=== PATIENT | male | born 1975 | race African-American/Black ===

== ENCOUNTER 2019-05-17 14:42 | Emergency (ER) | payer MEDICAID, SELFPAY ==
[2019-05-17 14:44] VITALS: BP 152/110; PULSE 105; RESP 16; TEMP 36.6; O2SAT 97; BMI 37.5
[2019-05-17 15:20] VITALS: BP 149/104; BP 161/102; BP 166/109; PULSE 102; PULSE 112; PULSE 99
[2019-05-17] MEDS: Ondansetron 4 MG/2 ML Vial IV (15:36)
[2019-05-17] MEDS: Meclizine HCl 25 MG Tablet PO (15:36)
--- NOTE | 2019-05-17 15:36 | ED.VISSUMM ---
- ER Visit Summary Date of Service: 05/17/19 Chief Complaint: Dizzy History of Present Illness: The patient is a 43 M with history of hypertension and vertigo. Patient states he got dizzy last evening and symptoms seem to worsen today. He describes it more as a vertigo sensation as opposed to lightheadedness. He denies palpitations. He states symptoms started after he got up out of bed. He has had mild nausea and vomiting secondary to his dizziness. He denies headache or vision change. Physical Examination: Blood pressure is 152/110, otherwise vitals normal. Patient sitting upright in bed no acute distress. Patient is in no acute distress and is nontoxic appearing. Head and neck examination is normal. Heart is regular rate and rhythm. Palpable pulses are noted throughout. Lungs are clear with good air movement throughout. Abdomen is soft and nontender. Bowel sounds are noted. Extremity examination is unremarkable with full range of motion. Neurologic examination reveals no focal deficits. Test Results: [] Emergency Department Course and Treatment: Patient is given a liter IV fluids, Zofran, and p.o. Antivert. Half hour later on repeat exam his symptoms are improved. He is able to lie his head back completely with no sensation of spinning. He will begin a prescription for Antivert at home as needed. Treatment Plan: [] Disposition: Discharge Impression: Vertigo, improved This note was generated with [employer] dictation software. It may contain incorrect words, spelling, and punctuation that were not noted in review of the chart prior to signing ED Disposition - Plan for ED Patient: Disposition: Home or Assisted Living Instructions: Benign Positional Vertigo Prescriptions: Meclizine HCl [Antivert] 25 mg PO 4X/DAY PRN PRN #20 tablet PRN Reason: Dizziness Referrals: Elizabeth Scott MD [STAFF PHYSICIAN] - As Needed
[2019-05-17] MEDS: 0.9% Normal Saline 1,000 ML 1000 ML IV (15:37)
[2019-05-17 16:18] VITALS: BP 169/116; PULSE 99; RESP 19; O2SAT 96
== END 2019-05-17 16:19 | disposition home or self-care (01) ==
PROVIDERS: Emergency Provider Emergency Medicine
DX: R42 Dizziness and giddiness (principal); I10 Essential (primary) hypertension; Z72.0 Tobacco use
CPT/HCPCS: 96361; 96374; 99283; J2405

== ENCOUNTER 2020-01-07 14:50 | Observation (INO) | payer OTHER, SELFPAY ==
[2020-01-07] VITALS (12 sets, daily range): BP systolic 133–154; BP diastolic 85–116; PULSE 94–104; RESP 16–18; TEMP 36.6–36.9; O2SAT 95–100; BMI 37.1
--- NOTE | 2020-01-07 15:18 | EKG12_ITS ---
Test Reason : AM EKG Blood Pressure : / mmHG Vent. Rate : 078 BPM Atrial Rate : 078 BPM P-R Int : 142 ms QRS Dur : 100 ms QT Int : 398 ms P-R-T Axes : 050 005 056 degrees QTc Int : 453 ms Normal sinus rhythm with sinus arrhythmia Nonspecific T wave abnormality Abnormal ECG When compared with ECG of 07-JAN-2020 16:50, MANUAL COMPARISON REQUIRED, DATA IS UNCONFIRMED Confirmed by YAW SANDERS ([id number]), associate editor COCO RAZA ([id number]) on 01/09/2020 9:55:33 AM Referred By: JEREL Confirmed By:YAW SANDERS
--- NOTE | 2020-01-07 15:20 | RAD_ITS ---
STUDY: X-RAY CHEST REASON FOR EXAM: Male, 44 years old. Chest pain TECHNIQUE: Single AP portable view of the chest. COMPARISON: None. FINDINGS: EKG lead projects are seen. The lungs are clear and expanded. There is no demonstrated pleural abnormality. There is mild cardiac enlargement. Normal mediastinum and fatou. Normal visualized pulmonary arteries. Normal visualized aortic arch and descending thoracic aorta. Normal visualized thoracic spine. Normal visualized ribs, clavicles, and shoulders. There is no demonstrated abnormality of the visualized soft tissue structures of the upper abdomen. RAD/Chest 1 View (Portable) IMPRESSION: Mild cardiomegaly. Electronically Signed: Gabo Gupta, at 15:42 EST , Service support ,
--- NOTE | 2020-01-07 15:22 | ED.DCSUM_ITS ---
- ER Visit Summary Date of Service: 01/07/20 Chief Complaint: [Chest pain] History of Present Illness: The patient is a 44 M [presents the emergency department chest discomfort that started this morning when he woke up in the morning. Patient describes a pressure heaviness to the left chest. Patient describes the pain radiating to his left shoulder and down his left arm at times. Patient states the discomfort is been continuous since this morning. He is never had discomfort like this before. He denies recent travel or surgery. Patient did feel somewhat short of breath with it and had some mild nausea. Patient believes his father had a heart attack but is unsure at what age. Patient has been under increased stress of late. Patient does have history of hypertension but not currently medicated. Patient denies any recent illness. Patient is never had a stress test or heart catheterization. Patient currently rates his pain a 6 out of 10.] Physical Examination: [HEENT-PERRLA, EOMI. Cranial nerves II through XII grossly intact. TMs clear. Mucous membranes moist. No adenopathy. Cardiovascular-regular rate and rhythm without murmur or ectopy Lungs-clear to auscultation, chest wall stable without crepitus or subcu emphysema Abdomen-normoactive bowel sounds, soft, nontender, no rebound or rigidity, no peritoneal signs. Extremities-intact ?4, normal range of motion, normal pulses, atraumatic] Test Results: [EKG obtained on arrival showed a sinus rhythm with a ventricular rate of 102 bpm with LVH noted and nonspecific ST changes.] CBC with differential obtained was unremarkable. Chemistries unremarkable. Troponin was 0.037. D-dimer was less than 0.27. Chest x-ray showed nothing acute. Emergency Department Course and Treatment: [Patient received aspirin on arrival the emergency department. Patient was given sublingual nitroglycerin x2 tablets and his pain resolved. Patient had an inch of Nitropaste placed to the anterior chest wall. On arrival patient was placed on a satellite project site monitor.] Treatment Plan: [Admit for further work-up and evaluation of chest pain] Disposition: [Admit] Impression: [Chest pain-rule out acute coronary syndrome] This note was generated with [employer] dictation software. It may contain incorrect words, spelling, and punctuation that were not noted in review of the chart prior to signing ED Disposition - Plan for ED Patient: Referrals: Care Physician,No Primary [Primary Care Provider] -
[2020-01-07] MEDS: Aspirin 81 MG TAB.CHEW 324 MG PO (15:27)
[2020-01-07] MEDS: 0.9% Normal Saline 1,000 ML 150 ML IV (15:27)
[2020-01-07] MEDS: Nitroglycerin SL (ED/IMG/CATH) 0.4 MG TABLET SUBLINGUAL ×2 (15:28→15:35)
[2020-01-07 15:33] LABS: Basophil# 0.01 X10^3/uL; Basophil% 0.2 % (0-1); Eosinophil# 0.02 X10^3/uL; Eosinophils% 0.4 % (0-5); Hematocrit 47.1 % (40-54); Hemoglobin 15.9 g/dL (13.0-16.5); Lymphocyte % 37.4 % (19-41); Mean Corp Hgb Conc 33.8 g/dL (32-36); Mean Corpuscular Hgb 29.3 pg (27.0-32.0); Mean Corpuscular Volume 86.7 fL (80-94); Mean Platelet Vol. 11.9 fl (6.2-12.0); Monocyte# 0.46 X10^3/uL; Monocyte% 8.2 % (0-10); NRBC Flagged by Analyzer 0 % (0-5); Neutrophil # 3.01 X10^3/uL (2.7-7.7); Neutrophil % 53.4 % (47-70); Platelet Count 177 K/mm3 (150-450); RBC Distribution Width CV 13.2 % (11.6-14.6); RBC Distribution Width SD 42.3 fl (35.1-43.9); Red Blood Count 5.43 M/mm3 (4.6-6.2); White Blood Count 5.6 K/mm3 (4.4-11.0)
[2020-01-07 15:47] LABS: D-Dimer Quantitative (DVT/PE) < 0.27 FEU/ug/m (0.27-0.49)
[2020-01-07 15:50] LABS: Anion Gap 6 (5-15); BUN 14 mg/dL (7-18); BUN/Creat Ratio 13.5 RATIO (10-20); Calcium,Total 8.5 mg/dL (8.5-10.1); Chloride 108 mmol/L (98-107); Creatinine, Serum 1.04 mg/dL (0.70-1.30); EST Glomerular Filtration Rate 83 mL/min (>60); Est Glom Filt Rate - Afr Amer 100 mL/min (>60); Estimated Creatinine Clearance 82.65 ml/min; Glucose 105 mg/dL (74-106); Potassium 3.8 mmol/L (3.5-5.1); Sodium Level 142 mmol/L (136-145)
[2020-01-07] MEDS: Acetaminophen 325 MG Tablet 650 MG PO (16:06)
[2020-01-07] MEDS: Nitroglycerin Oint 1 INCH PACKET TRANSDERM. (16:06)
--- NOTE | 2020-01-07 16:10 | PCM.HP.STD ---
<Kathi Dumont - Last Filed: 01/07/20 16:24> Problem List (1) HTN (hypertension) Status: Chronic History of Present Illness Date of Admission: 01/07/20 Chief Complaint: Chest pressure. The patient is a 44 year old M who presents emergency room due to chest pressure. Patient reports this began upon awakening this morning and has been intermittent during the day. Patient denies any aggravating or alleviating factors. He describes a chest tightness and pressure sensation feeling like his heart is being squeezed. He denies associated shortness of breath, lightheadedness, diaphoresis, palpitations. He does report some pain radiation to his left shoulder blade area. He reports a history of high blood pressure however he has not been on medication to treat this. He reports his father had heart attack, he does not know what age. He is also 1/2 pack/day smoker. No other risk factors of early onset heart disease. Patient reports he is fairly active with his job and has never had these symptoms prior. Past Medical History Past Medical History (Chronic Problems): Chronic Problems HTN (hypertension) (Chronic) Allergies No Known Allergies Allergy (Verified 01/07/20 14:51) Home Medications: Ambulatory Orders Medication Instructions Recorded NK 01/07/20 Surgical History: no surgical history Psychiatric History: No pertinent psych hx Lives: Alone Smoking Status: Current every day smoker Tobacco Use: Cigarettes - Half pack per day Alcohol: Heavy - 12 pack on the weekends Drugs: None - *Family History Maternal History Items: - - Lymphoma Paternal History Items: Heart Disease Review of Systems Constitutional: Denies: Chills, Fever, Weight Change HEENT: Denies: Head Aches, Sinus Congestion, Sinus Drainage Cardiovascular: Reports: Chest Pressure, Chest Tightness. Denies: Light Headedness, Palpitations, Syncope Respiratory: Denies: Cough, Shortness of breath at rest, Sputum production Gastrointestinal: Denies: Abdominal Pain, Nausea, Vomiting Genitourinary: Denies: Dysuria Musculoskeletal: Denies: Joint Pain, Joint Tenderness Skin: Denies: Rash, Wounds Neurological: Denies: Numbness, Tingling, Focal weakness Psychiatric: Denies: Anxiety, Depression, Homicidal Ideations, Suicidal Ideations Hematologic/ Lymphatic: Denies: Easy Bruising, Easy Bleeding VTE Information - Inpt Only VTE Present on Admission: No VTE Mechan Device Prophylaxis: None VTE Pharm Prophylaxis ordered?: No Reason prophylaxis not ordered:: Treatment Not Indicated - Physical Exam Vitals/I&O's: Vital Signs Temp Pulse Resp BP Pulse Ox 98 F 98 17 140/103 H 98 01/07/20 14:51 01/07/20 16:06 01/07/20 15:59 01/07/20 16:06 01/07/20 15:59 Oxygen Flow Rate (L/min) 2 Oxygen Delivery Method Nasal Cannula Weight: 230 lb Body Mass Index (BMI) 37.1 General: Alert, Oriented x3, Cooperative HEENT: Atraumatic, PERRLA, EOMI, Normocephalic Neck: Supple, No JVD, Negative Carotid Bruits Lungs: Clear to auscultation, Normal air movement Cardiovascular: Regular rate, Regular Rhythm, Normal S1, Normal S2, No murmurs Abdomen: Bowel Sounds Present, Soft, Non Tender, Non-Distended Extremities: No clubbing, No cyanosis, No edema, Capillary Refill Less than 3 Seconds Skin: No rashes, No breakdown Musculoskeletal: No Tenderness to Palpation of Joints or Extremities Neurological: Cranial nerves II-XII grossly intact, Neuro grossly intact Psych/Mental Status: Normal Affect, Appropriate Laboratory Results 01/07/20 15:03: WBC 5.6, RBC 5.43, Hgb 15.9, Hct 47.1, MCV 86.7, MCH 29.3, MCHC 33.8, RDW Std Deviation 42.3, RDW Coeff of Kaci 13.2, Plt Count 177, MPV 11.9, Immature Gran % (Auto) 0.400, Neut % (Auto) 53.4, Lymph % (Auto) 37.4, [place] % (Auto) 8.2, Eos % (Auto) 0.4, Baso % (Auto) 0.2, Absolute Neuts (auto) 3.0, Absolute Lymphs (auto) 2.10, Nucleated RBC % 0 01/07/20 15:03: D-Dimer Quant (PE/DVT) < 0.27 L 01/07/20 15:03: Sodium 142, Potassium 3.8, Chloride 108 H, Carbon Dioxide 28.0, Anion Gap 6, BUN 14, Creatinine 1.04, Estim Creat Clear Calc 82.65, Est GFR (MDRD) Af Amer 100, Est GFR (MDRD) Non-Af 83, BUN/Creatinine Ratio 13.5, Glucose 105, Calcium 8.5, Troponin I 0.037 Current Medications Sodium Chloride () 1,000 mls @ 150 mls/hr IV .Q6H40M [facility] Last Admin: 01/07/20 15:27 Dose: 150 mls/hr Documented by: Nitroglycerin (Nitrostat) 0.4 mg SUBLINGUAL Q5M PRN PRN Reason: Chest pain Last Admin: 01/07/20 15:35 Dose: 0.4 mg Documented by: Assessment/Plan 1. Chest pain, rule out ACS- initial troponin negative. EKG showed nonspecific ST changes. Chest x-ray unremarkable. Trend enzymes. Plan for stress test in a.m. Lipid profile in a.m. Suspect symptoms may be due to untreated hypertension. Patient's diastolic BP especially high on admission. Initiated on amlodipine 5 mg daily. 2. Untreated hypertension-patient has been told he has had high blood pressure in the past, not on medication regimen. Will begin amlodipine 5mg daily and titrate pending further BP monitoring. 3. Tobacco dependence-encouraged cessation. Nicotine replacement patch if desired. DVT prophylaxis-not indicated, low risk This patient was seen by LUCA Guevara under the supervision of Dr. Geiger. <Leonardo Geiger F - Last Filed: 01/07/20 18:37> History of Present Illness The patient is a 44 year old M [] Past Medical History Allergies No Known Allergies Allergy (Verified 01/07/20 14:51) - Physical Exam Vitals/I&O's: Vital Signs Temp Pulse Resp BP Pulse Ox 98.5 F 95 16 147/98 H 100 01/07/20 16:50 01/07/20 16:56 01/07/20 16:50 01/07/20 16:50 01/07/20 16:50 Oxygen Flow Rate (L/min) 2 Oxygen Delivery Method Room Air Weight: 230 lb Body Mass Index (BMI) 37.1 Intake and Output for Last 24 Hours 01/05/20 01/06/20 01/07/20 23:59 23:59 23:59 Intake Total 490 / 490 Balance 490 / 490 Laboratory Results 01/07/20 15:03: WBC 5.6, RBC 5.43, Hgb 15.9, Hct 47.1, MCV 86.7, MCH 29.3, MCHC 33.8, RDW Std Deviation 42.3, RDW Coeff of Kaci 13.2, Plt Count 177, MPV 11.9, Immature Gran % (Auto) 0.400, Neut % (Auto) 53.4, Lymph % (Auto) 37.4, [place] % (Auto) 8.2, Eos % (Auto) 0.4, Baso % (Auto) 0.2, Absolute Neuts (auto) 3.0, Absolute Lymphs (auto) 2.10, Nucleated RBC % 0 01/07/20 15:03: D-Dimer Quant (PE/DVT) < 0.27 L 01/07/20 15:03: Sodium 142, Potassium 3.8, Chloride 108 H, Carbon Dioxide 28.0, Anion Gap 6, BUN 14, Creatinine 1.04, Estim Creat Clear Calc 82.65, Est GFR (MDRD) Af Amer 100, Est GFR (MDRD) Non-Af 83, BUN/Creatinine Ratio 13.5, Glucose 105, Calcium 8.5, Troponin I 0.037 01/07/20 18:20: Troponin I Pending Current Medications Acetaminophen (Tylenol) 650 mg PO Q6H PRN PRN PRN Reason: Pain Score 1-10/Temp > 100.7 F Amlodipine Besylate (Norvasc) 5 mg PO DAILY [facility] Last Admin: 01/07/20 17:22 Dose: 5 mg Documented by: Nitroglycerin (Nitrostat) 0.4 mg SUBLINGUAL Q5M PRN PRN Reason: CARDIAC/CHEST PAIN Sodium Chloride () 10 - 40 ml IV UD PRN PRN Reason: SALINE FLUSH Code Visit Addendum: Dr. Geiger I personally examined the patient and reviewed the chart. I agree with the above. 44-year-old male who presents to the hospital with chest pain. His chest pain was atypical and not exacerbated by activity and not also significantly relieved by rest. He does have some relief now after the nitroglycerin. He has a family history of a heart attack in his father and he is also a smoker as well as obese. We will trend troponins and plan for an exercise nuclear stress test in the morning. Also will start him on Norvasc for his untreated high blood pressure. We did discuss cessation of tobacco products as this can decrease his risk of a heart attack by 50%. OBSV E&M: 42804 Initial observation care L2
--- NOTE | 2020-01-07 17:08 | EKG12_ITS ---
Test Reason : CP ADMISSION Blood Pressure : / mmHG Vent. Rate : 096 BPM Atrial Rate : 096 BPM P-R Int : 144 ms QRS Dur : 098 ms QT Int : 364 ms P-R-T Axes : 058 -02 066 degrees QTc Int : 459 ms Normal sinus rhythm Voltage criteria for left ventricular hypertrophy Nonspecific T wave abnormality Abnormal ECG When compared with ECG of 07-JAN-2020 15:00, MANUAL COMPARISON REQUIRED, DATA IS UNCONFIRMED Confirmed by YAW SANDERS ([id number]), electronic news gathering editor COCO RAZA ([id number]) on 01/09/2020 9:54:09 AM Referred By: JEREL Confirmed By:YAW SANDERS
[2020-01-07] MEDS: amLODIPine 5 MG Tablet PO (17:22)
[2020-01-08] VITALS (17 sets, daily range): BP systolic 112–148; BP diastolic 74–108; PULSE 74–115; RESP 14–18; TEMP 36.4–37; O2SAT 95–98
--- NOTE | 2020-01-08 05:55 | EKG12_ITS ---
Test Reason : Blood Pressure : / mmHG Vent. Rate : 102 BPM Atrial Rate : 102 BPM P-R Int : 142 ms QRS Dur : 098 ms QT Int : 354 ms P-R-T Axes : 051 -11 070 degrees QTc Int : 461 ms Sinus tachycardia Moderate voltage criteria for LVH, may be normal variant Nonspecific T wave abnormality Abnormal ECG Confirmed by YAW SANDERS ([id number]), visual effects editor COCO RAZA ([id number]) on 01/09/2020 9:30:04 AM Referred By: VERONICA Confirmed By:YAW SANDERS
[2020-01-08] MEDS: 0.9% Saline Lock 10 ML Syringe IV (06:16)
[2020-01-08 07:18] LABS: Cholesterol 115 mg/dL (200); High Density Lipoprotein 79 mg/dL; Triglycerides 108 mg/dL; Very Low Density Lipoprotein 22 mg/dL (5-40)
[2020-01-08] MEDS: Lisinopril 10 MG Tablet PO (09:56)
[2020-01-08] MEDS: amLODIPine 5 MG Tablet PO (09:56)
--- NOTE | 2020-01-08 10:19 | STRESSREP ---
Stress Test Report Date: 01-08-2020 Procedure: Pharmacologic stress nuclear imaging study Indications: Chest pain Consent: Per the patient Procedure: The patient underwent pharmacologic (Regadenoson) evaluation with a peak heart rate of 109 beats per minute (61 %predicted maximal heart rate) and a peak blood pressure of 158/110 mmHg. The baseline ECG demonstrated normal sinus rhythm. The peak pharmacologic ECG demonstrated no obvious ECG changes. There were no cardiac dysrhythmias pretest, during pharmacologic infusion, or recovery. There was no complaint of chest discomfort during pharmacologic infusion or recovery. The examination was discontinued secondary to completion of protocol. Impression: 1. Pharmacologic (Regadenoson) evaluation 2. Peak pharmacologic ECG with no obvious ECG changes. 3. There were no cardiac dysrhythmias pretest, during pharmacologic infusion, or recovery. 4. Nuclear images pending Myocardial perfusion imaging study: Technique: The patient was injected with 15.0 millicuries of technetium 99m Cardiolite and subsequently rest SPECT Cardiolite nuclear imaging was obtained in the horizontal long, vertical long, and short axis views. The patient underwent pharmacologic (Regadenoson) evaluation with a peak heart rate of 109 beats per minute (61 % percent predicted maximal heart rate) and a peak blood pressure of 158/110 mmHg. The patient was injected with 45.0 millicuries of technetium 99m Cardiolite and subsequently stress SPECT Cardiolite nuclear imaging was obtained in the horizontal long, vertical long, and short axis views. A gated Cardiolite study at peak stress was obtained. Interpretation: Rest and stress SPECT Cardiolite nuclear imaging status post realignment, normalization, and attenuation correction demonstrate relative uniform tracer uptake and myocardial perfusion appearing within normal limits. There is end systolic thickening and brightening. The gated Cardiolite study demonstrates myocardial thickening and inward wall motion. The reported LVEF is 30 %. Impression: 1. Rest and stress SPECT Cardiolite nuclear imaging demonstrate relative uniform tracer uptake and myocardial perfusion appearing within normal limits. 2. The gated Cardiolite study reports an LVEF of 30 %. 3. Rest and stress SPECT Cardiolite nuclear imaging potentially compatible with left ventricular dilatation. This note was generated with [employer] software. It may contain incorrect words, spelling, and punctuation that were not noted in checking the note before signing.
[2020-01-08] MEDS: TICAGRELOR 90 MG TABLET 180 MG PO (12:07)
--- NOTE | 2020-01-08 12:40 | PCM.PROGNOTE ---
<Kathi Dumont - Last Filed: 01/08/20 12:48> Subjective: Patient seen and examined. Denies further chest pain overnight or this morning. Underwent stress test which was abnormal. Patient denies symptoms during testing. - Physical Exam Vitals/I&O's: Vital Signs Temp Pulse Resp BP Pulse Ox 98.5 F 84 18 139/108 H 96 01/08/20 09:38 01/08/20 11:54 01/08/20 09:38 01/08/20 09:38 01/08/20 09:38 Oxygen Flow Rate (L/min) 2 Oxygen Delivery Method Room Air Weight: 230 lb Body Mass Index (BMI) 37.1 Intake and Output for Last 24 Hours 01/06/20 01/07/20 01/08/20 23:59 23:59 23:59 Intake Total 730 / 730 0 / 0 Balance 730 / 730 0 / 0 General: Alert, Oriented x3, Cooperative HEENT: Atraumatic, PERRLA, EOMI, Normocephalic Neck: Supple, No JVD, Negative Carotid Bruits Lungs: Clear to auscultation, Normal air movement Cardiovascular: Regular rate, Regular Rhythm, Normal S1, Normal S2 Abdomen: Bowel Sounds Present, Soft, Non Tender, Non-Distended Extremities: No clubbing, No cyanosis, No edema, Capillary Refill Less than 3 Seconds Skin: No rashes, No breakdown Musculoskeletal: No Tenderness to Palpation of Joints or Extremities Neurological: Cranial nerves II-XII grossly intact, Neuro grossly intact Psych/Mental Status: Normal Affect, Appropriate Laboratory Results 01/07/20 15:03: WBC 5.6, RBC 5.43, Hgb 15.9, Hct 47.1, MCV 86.7, MCH 29.3, MCHC 33.8, RDW Std Deviation 42.3, RDW Coeff of Kaci 13.2, Plt Count 177, MPV 11.9, Immature Gran % (Auto) 0.400, Neut % (Auto) 53.4, Lymph % (Auto) 37.4, Oxford % (Auto) 8.2, Eos % (Auto) 0.4, Baso % (Auto) 0.2, Absolute Neuts (auto) 3.0, Absolute Lymphs (auto) 2.10, Nucleated RBC % 0 01/07/20 15:03: D-Dimer Quant (PE/DVT) < 0.27 L 01/07/20 15:03: Sodium 142, Potassium 3.8, Chloride 108 H, Carbon Dioxide 28.0, Anion Gap 6, BUN 14, Creatinine 1.04, Estim Creat Clear Calc 82.65, Est GFR (MDRD) Af Amer 100, Est GFR (MDRD) Non-Af 83, BUN/Creatinine Ratio 13.5, Glucose 105, Calcium 8.5, Troponin I 0.037 01/07/20 18:20: Troponin I 0.042 01/07/20 20:42: Troponin I 0.050 H 01/08/20 00:20: Troponin I 0.050 H 01/08/20 05:45: Triglycerides 108, Cholesterol 115, LDL Cholesterol 14, VLDL Cholesterol 22, HDL Cholesterol 79 Current Medications Acetaminophen (Tylenol) 650 mg PO Q6H PRN PRN PRN Reason: Pain Score 1-10/Temp > 100.7 F Amlodipine Besylate (Norvasc) 5 mg PO DAILY [facility] Last Admin: 01/08/20 09:56 Dose: 5 mg Documented by: Lisinopril (Zestril) 10 mg PO DAILY [facility] Last Admin: 01/08/20 09:56 Dose: 10 mg Documented by: Nitroglycerin (Nitrostat) 0.4 mg SUBLINGUAL Q5M PRN PRN Reason: CARDIAC/CHEST PAIN Sodium Chloride () 10 - 40 ml IV UD PRN PRN Reason: SALINE FLUSH Last Admin: 01/08/20 06:16 Dose: 10 ml Documented by: Medical Necessity - Tobacco Use Smoking Status: Current every day smoker Tobacco Use: Cigarettes Assessment/Plan 1. Chest pain, abnormal stress test with reduced ejection fraction- EKG showed nonspecific ST changes and LVH. Chest x-ray unremarkable. Patient underwent nuclear stress test which demonstrated left ventricular dilatation and LVEF 30%. Cardiology consulted. Brilinta 180 mg p.o. x1. Plan for heart cath later today. 2. Untreated hypertension-patient has been told he has had high blood pressure in the past, not on medication regimen. Initiated on amlodipine 5 mg daily on admission. Additionally started on lisinopril 10 mg daily given diastolic BP remains elevated. 3. Tobacco dependence-encouraged cessation. Nicotine replacement patch if desired. DVT prophylaxis-not indicated, low risk This patient was seen by LUCA Guevara under the supervision of Dr. Rizzo. <Julianna Rizzo - Last Filed: 01/08/20 14:35> - Physical Exam Vitals/I&O's: Vital Signs Temp Pulse Resp BP Pulse Ox 98.5 F 84 18 139/108 H 96 01/08/20 09:38 01/08/20 11:54 01/08/20 09:38 01/08/20 09:38 01/08/20 09:38 Oxygen Flow Rate (L/min) 2 Oxygen Delivery Method Room Air Weight: 104.326 kg Body Mass Index (BMI) 37.1 Intake and Output for Last 24 Hours 01/06/20 01/07/20 01/08/20 23:59 23:59 23:59 Intake Total 730 / 730 0 / 0 Balance 730 / 730 0 / 0 Laboratory Results 01/07/20 15:03: WBC 5.6, RBC 5.43, Hgb 15.9, Hct 47.1, MCV 86.7, MCH 29.3, MCHC 33.8, RDW Std Deviation 42.3, RDW Coeff of Kaci 13.2, Plt Count 177, MPV 11.9, Immature Gran % (Auto) 0.400, Neut % (Auto) 53.4, Lymph % (Auto) 37.4, Oxford % (Auto) 8.2, Eos % (Auto) 0.4, Baso % (Auto) 0.2, Absolute Neuts (auto) 3.0, Absolute Lymphs (auto) 2.10, Nucleated RBC % 0 01/07/20 15:03: D-Dimer Quant (PE/DVT) < 0.27 L 01/07/20 15:03: Sodium 142, Potassium 3.8, Chloride 108 H, Carbon Dioxide 28.0, Anion Gap 6, BUN 14, Creatinine 1.04, Estim Creat Clear Calc 82.65, Est GFR (MDRD) Af Amer 100, Est GFR (MDRD) Non-Af 83, BUN/Creatinine Ratio 13.5, Glucose 105, Calcium 8.5, Troponin I 0.037 01/07/20 18:20: Troponin I 0.042 01/07/20 20:42: Troponin I 0.050 H 01/08/20 00:20: Troponin I 0.050 H 01/08/20 05:45: Triglycerides 108, Cholesterol 115, LDL Cholesterol 14, VLDL Cholesterol 22, HDL Cholesterol 79 Current Medications Acetaminophen (Tylenol) 650 mg PO Q6H PRN PRN PRN Reason: Pain Score 1-10/Temp > 100.7 F Amlodipine Besylate (Norvasc) 5 mg PO DAILY [facility] Last Admin: 01/08/20 09:56 Dose: 5 mg Documented by: Carvedilol (Coreg) 3.125 mg PO BID [facility] HCTZ/Losartan Potassium (Hyzaar 50-12.5 Tablet) 1 tab PO DAILY [facility] Heparin Sodium (Beef Lung) (Heparin 500 Unit/5 Ml (100/Ml)) 500 unit IV UD PRN PRN Reason: HEPARIN FLUSH Labetalol HCl (Trandate) 5 mg IV X1 PRN PRN Reason: SBP > 160 prior to sheath pull Stop: 01/10/20 14:27 Nitroglycerin (Nitrostat) 0.4 mg SUBLINGUAL Q5M PRN PRN Reason: CARDIAC/CHEST PAIN Nitroglycerin (Nitrobid) 0.5 inch TRANSDERM. Q8 [facility] Sodium Chloride () 10 - 40 ml IV UD PRN PRN Reason: SALINE FLUSH Last Admin: 01/08/20 06:16 Dose: 10 ml Documented by: Assessment/Plan This patient was seen in conjunction with Kathi Dumont NP. I have independently interviewed and examined the patient and reviewed pertinent historical, laboratory, and other data. Please refer to her note for patient's presentation, findings, and recommendations. Patient was seen and examined. Denied any chest pain or dizziness or palpitation. Telemetry shows normal sinus rhythm. He underwent a stress test that was positive for an EF of 30%, left ventricular dilatation. No signs of ischemia. Cardiology has been consulted Vitals were reviewed -stable Physical Exam: Gen: Comfortable, not pale, not jaundiced, alert oriented x3 CVS:HS I +II, regular, no murmurs RESP: CTA GI: BS present and normal, nontender, no palpable organs EXT:No edema Labs reviewed: ASSESSMENT: 1. Chest pain, atypical, abnormal stress test 2. Cardiomyopathy/left ventricular dilatation, EF 30% 3. Hypertension, uncontrolled 4. Nicotine dependence Meds reviewed Plan: Continue on amlodipine 5 mg daily, hydrochlorothiazide/losartan as well as carvedilol Continue on cardiology recommendations for cardiac cath Code Visit OBSV E&M: 84657 Observ/hosp same date L3
[2020-01-08] MEDS: Aspirin 81 MG TAB.CHEW 324 MG PO (13:44)
--- NOTE | 2020-01-08 13:56 | NURSING ---
Pt to labor standards director via this RN
--- NOTE | 2020-01-08 14:28 | ECHOCS_ITS ---
Reason For Study: CHF Procedure This was a 2D Doppler, Color Flow transthoracic echocardiogram. The study was technically difficult. Due to body habitus. Contrast injection was performed. Exam performed portable in patient room. Left Ventricle Moderately dilated left ventricle. The estimated ejection fraction is 25-30 %. Stage 1 diastolic dysfunction. There is severe global hypokinesis of the left ventricle. Right Ventricle Normal size and thickness. Normal systolic function. Atria The left atrium is mildly enlarged. Normal right atrium. Normal atrial septum. Mitral Valve The mitral valve is structurally normal. No prolapse or stenosis seen. Tricuspid Valve Normal tricuspid valve. Unable to estimate RV systolic pressure due to insufficient tricuspid regurgitant envelope. Aortic Valve Normal aortic valve. Trisinus/trileaflet aortic valve. Pulmonic Valve The pulmonic valve is not well visualized. Great Vessels Normal aortic root. Normal arch. Normal inferior vena cava. Inferior vena cava collapse with sniff. Pericardium/Pleural No pericardial effusion. Medication Diluted definity 4.0ml given slow IV push to enhance endocardial definition. MMode/2D Measurements & Calculations LVIDd: 6.3 cm IVSd: 1.4 cm Ao root diam: 3.4 cm LVIDs: 5.5 cm LVPWd: 1.5 cm RVDd: 3.0 cm FS: 12.4 % LAV(MOD-bp): 79.3 ml LA A4 area: 22.2 cm2 LA dimension(2D): 4.2 cm LAV(MOD-bp) Indexed: 37.4 ml/m2 LAV(MOD-sp2): 67.8 ml LAV(MOD-sp4): 79.5 ml RA A4 area: 15.4 cm2 Time Measurements MV dec time: 0.16 sec Doppler Measurements & Calculations MV E max oliver: 39.0 cm/sec Lat Peak E' Oliver: 3.0 cm/sec Med Peak E' Oliver: 4.2 cm/sec MV A max oliver: 48.3 cm/sec E/E' lat: 13.0 E/E' med: 9.4 MV E/A: 0.81 Ao V2 max: 111.8 cm/sec LV V1 max: 77.0 cm/sec PA V2 max: 72.5 cm/sec Ao max P.0 mmHg LV V1 max P.4 mmHg Ao V2 mean: 90.9 cm/sec Ao mean P.5 mmHg Ao V2 VTI: 19.3 cm Interpretation Summary Moderately dilated left ventricle. The estimated ejection fraction is 25-30 %. Stage 1 diastolic dysfunction. There is severe global hypokinesis of the left ventricle. The left atrium is mildly enlarged. Unable to estimate RV systolic pressure due to insufficient tricuspid regurgitant envelope. The study was technically difficult. There is no comparison study available. Contrast injection was performed. Ordering Physician: William Newby Referring Physician: NO PCP Performed By: Geneva Camacho, MADELYN, RVT
--- NOTE | 2020-01-08 14:37 | CON.PCM_ITS ---
Problem List (1) HTN (hypertension) Status: Chronic Reason for Consult Date of Consultation: 01/08/20 Reason for Consultation: New onset chest pain, LV dysfunction, abnormal troponin History of Present Illness: The patient is a 44 year old nondiabetic M, current smoker of about half a pack of cigarettes per day for the past 23 years, with known hypertension on no meds, previously on hydrochlorothiazide but decided to stop it on his own. In addition the patient drinks about a sixpack of beer every other day but used to drink heavily in the form of 1/5 of vodka 2-3 times per week. In addition he admits to THC but no other illicit substances. He denies any [id number] or herbal medications. Patient was in normal health up until yesterday when he developed 6 out of 10 substernal chest pressure which he describes a squeezing sensation rating to his left shoulder with associated nausea but no vomiting. Patient went to [facility] ER where he was given a sublingual nitroglycerin and his symptoms resolved. Initially his blood pressure was found to be quite high. His initial EKG showed normal sinus rhythm with nonspecific ST and T wave changes. His troponin increased to 0.050 and then leveled off at that level. The patient underwent a non-walking nuclear stress test this morning which demonstrated an EF around 35% but no overt ischemia with LV dilatation. 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 It is uncertain whether the patient's RCA traverses between the aorta and the pulmonary artery. His LV function was confirmed to be about 35% with a mildly elevated LVEDP. Echocardiogram pending. [] Past Medical History Allergies/Adverse Reactions: Allergies No Known Allergies Allergy (Verified 01/07/20 14:51) Home Medications: Ambulatory Orders Medication Instructions Recorded NK 01/07/20 Past Medical History (Chronic Problems): Chronic Problems HTN (hypertension) (Chronic) Surgical History: no surgical history Psychiatric History: No pertinent psych hx - *Family History Maternal History Items: - - Lymphoma Paternal History Items: Heart Disease Lives: Alone Smoking Status: Current every day smoker Tobacco Use: Cigarettes Alcohol: Heavy - 12 pack on the weekends Drugs: None Review of Systems - Review of Systems General: Denies: Fever, Night Sweats, Fatigue Cardiovascular: Reports: Chest Discomfort at Rest, Chest Tightness, Chest Heaviness. Denies: Chest Discomfort, Shortness of Breath, Orthopnea, PND, Peripheral Edema, Palpitations, Lightheadedness, Dizziness, Near Syncope, Syncope Respiratory: Denies: Cough, Sputum Production, Hemoptysis Gastrointestinal: Denies: Hematemesis, Hematochezia, Melena Genitourinary: Denies: Dysuria, Hematuria Skin: Denies: Rash Subjectve: Patient laying in bed, no acute distress. Objective: Vital Signs Temp Pulse Resp BP Pulse Ox 98.5 F 84 18 139/108 H 96 01/08/20 09:38 01/08/20 11:54 01/08/20 09:38 01/08/20 09:38 01/08/20 09:38 Oxygen Flow Rate (L/min) 2 Oxygen Delivery Method Room Air Weight: 230 lb Body Mass Index (BMI) 37.1 Intake and Output for Last 24 Hours 01/06/20 01/07/20 01/08/20 23:59 23:59 23:59 Intake Total 730 / 730 0 / 0 Balance 730 / 730 0 / 0 General: Awake, Alert, Oriented x 3 HEENT: PERRL, EOMI, Sclera Non Icteric Neck: Supple, Good ROM, No Lymph Node Enlargement Lungs: Clear to auscultation Cardiovascular: Regular Rhythm, Normal S1, Normal S2, No Murmurs, No Rubs, No Gallops Vascular: No Carotid Bruits, Normal Femoral Pulses, Normal Radial Pulses, Normal Dorsalis Pedal Pulse, Normal Posterior Tibial Pulses Abdomen: Bowel Sounds Present, Soft, Non Tender, No HSM, No Organomegaly Extremities: No Cyanosis, No Clubbing, No edema Neurological: No Focal Motor or Sensory Deficit 01/07/20 15:03: WBC 5.6, RBC 5.43, Hgb 15.9, Hct 47.1, MCV 86.7, MCH 29.3, MCHC 33.8, Plt Count 177, MPV 11.9, Immature Gran % (Auto) 0.400, Neut % (Auto) 53.4, Lymph % (Auto) 37.4, Bowman % (Auto) 8.2, Eos % (Auto) 0.4, Baso % (Auto) 0.2, Absolute Neuts (auto) 3.0, Nucleated RBC % 0 01/07/20 15:03: D-Dimer Quant (PE/DVT) < 0.27 L 01/07/20 15:03: Sodium 142, Potassium 3.8, Chloride 108 H, Carbon Dioxide 28.0, Anion Gap 6, BUN 14, Creatinine 1.04, Est GFR (MDRD) Af Amer 100, Est GFR (MDRD) Non-Af 83, BUN/Creatinine Ratio 13.5, Glucose 105, Calcium 8.5, Troponin I 0.037 01/07/20 18:20: Troponin I 0.042 01/07/20 20:42: Troponin I 0.050 H 01/08/20 00:20: Troponin I 0.050 H 01/08/20 05:45: Triglycerides 108, Cholesterol 115, LDL Cholesterol 14, VLDL Cholesterol 22, HDL Cholesterol 79 Rhythm: Negative EKG: As above ECHO: Pending Stress Test: Cardiac Cath: As above PCI: CT Surgery: Holter monitor: EPS: PPM: CXR: Chest CT Scan: Assessment/Plan 1. Chest pain: The patient presents with hypertensive induced chest pain superimposed on moderate LV dysfunction most likely result of uncontrolled hypertension due to poor medical management, alcohol use, and medical noncompliance. His catheterization demonstrates essentially normal coronary arteries with a possibility that his right coronary artery traverses between the aorta and the pulmonary artery. At this point I would discontinue his Brilinta, discontinue his baby aspirin, continue his amlodipine, start him on Coreg 3.125 mg p.o. twice daily, discontinue his lisinopril and start him on Hyzaar 50/12.5 mg p.o. daily for diastolic dysfunction and elevated diastolic pressure. In the short-term we will put him on nitroglycerin paste 1/2 inch every 8 hours status post catheterization to hopefully avoid any kind of groin complications. I recommend a 2D echo with Doppler to document where his LV function is today as well as his pulmonary pressures. Would recommend he go through cardiac rehab for 3 months followed by repeat echocardiogram to determine if his LV function has improved. If no improvement of his LV function, he may require a prophylactic AICD. 2. Tobacco cessation: I strongly encouraged the patient discontinue all tobacco and THC products. 3. Alcohol abuse: I encouraged the patient discontinue all alcohol products as this may be contributing to his LV dysfunction. 4. Thank you very much for the opportunity to participate in the cardiac care of your patient. Discussed with Dr. Rivera. Consultation took place between 1 PM and 1:30 PM. Code Visit Inpatient E&M: 70995 Init Hosp L2
--- NOTE | 2020-01-08 14:45 | CL.D_ITS ---
Patient Name: FREDDIE BOYKIN [facility] Study Date: 01/08/2020 Performing: William Newby MD Ht: 66.14 inches 168 cm : 1975 Wt: 229.28 lbs 104 kg Age: 44 Gender: male BSA: 2.12 PROCEDURE(S) PERFORMED [id number]/COR/LV CLINICAL PROFILE AND INDICATIONS Patient presents with NSTEMI for urgent cardiac cath Indications: New Onset Angina <= 2 months, Suspected CAD, LV Dysfunction Heart Failure: NYHA Class: 1, Newly Diagnosed: Yes, Heart Failure Type: Systolic Stress/Imaging Date: 01/08/2020Stress Test with SPECT MPI: Positive Low Risk Angina Classification Anginal Classification w/in 2 Weeks: CCS III CAD Presentations: Unstable angina. Other: Dyspnea on exertion. Comorbidities/Risk Factors: Hypertension Current/Recent Smoker (< 1year) Family History of Premature CAD CONCLUSIONS Normal coronary arteries Global LV systolic dysfunction- Moderate LVEF: by LV gram 35 % Depressed Left Ventricular systolic function - Moderate Elevated Left Ventricular End Diastolic Pressure RECOMMENDATIONS Management as per referring Plant Buyer CTA of aorta to determine if anomalous RCA goes b/w aorta and pulmonary artery. Manual sheath removal. DESCRIPTION OF PROCEDURE The patient arrived to the procedure lab. The risks and benefits of the procedure as well as a full d escription of our services here and current unavailability of surgical backup were fully explained to the patient and/or their significant other prior to the catheterization. The Timeout was completed, verifying the correct patient and procedure. The patient's procedural site was prepped and draped in the usual fashion. Local anesthetic was given subcutaneously to right groin region with Lidocaine 2%. Using a modified Seldinger technique, arterial access was obtained via the right femoral artery, a 4 Fr sheath was inserted Left Coronary Artery selective angiography was performed in multiple views us ing a 4 Fr. JL5 catheter. Right Coronary Artery selective angiography was then performed in multiple views using a 4 Fr. 3DRC catheter. Right Coronary Artery selective angiography was then performed in multiple views using a 4 Fr. AR MOD 2 catheter. Right Coronary Artery selective angiography was then performed in multiple views using a 4 Fr. AL 1 catheter. Left Ventriculography w as performed in SWAN projection using a 4 Fr. Pigtail catheter. LV to AO pullback pressures were then recorded.The arterial sheath was pulled and manual compression applied until hemostasis is achieved. CORONARY ANGIOGRAPHY DOMINANCE: Right Dominant LEFT HEART ASSESSMENT Left Ventricular Ejection Fraction: by LV Gram 35 % Global Hypokinesis - Moderate Depressed Left Ventricular systolic function LVEDP: 15 mmHg LEFT MAIN: Angiographically normal LEFT ANTERIOR DESCENDING ARTERY: Angiographically normal CIRCUMFLEX ARTERY: Angiographically normal RIGHT CORONARY ARTERY: Angiographically normal (Anomalous RCA off of anterior aorta) COMPLICATIONS No Complications PROCEDURE MEDICATIONS Oxygen: 2 L/min via nasal cannula Nitro 200 mcg IC 01/08/2020 14:22:41 Nitro Paste 0.5 in left deltoid 01/08/2020 14:25:15 SUMMARY OF HEMODYNAMIC DATA Time AIR REST ECG 13:59:58 AO 152/103 (122) SA 14:09:47 LV 146/-16, 12 14:21:48 LV 156/-15, 11 14:21:54 LVp 154/-16, 21 14:22:00 AOp 155/96 (120) 14:22:05 AO 136/86 (106) 14:22:59 RM AIR REST 14:41:55 Signed By William Newby MD On 01/08/2020 14:44:28 William Newby MD
--- NOTE | 2020-01-08 14:48 | CASEMGMT ---
[place] NOTE: Spoke [facility] apprenticeship training representative. She states pt does not have a network and can transfer to any hospital of his choice. Analia PORTILLO RN CM
--- NOTE | 2020-01-08 18:53 | NURSING ---
Bedret complete. Walked patient in hallway, tolerated well, dressing C/D/I. No hematoma noted
[2020-01-08] MEDS: Carvedilol 3.125 MG TABLET PO (21:46)
[2020-01-08] MEDS: Nitroglycerin Oint 1 INCH PACKET 0.5 INCH TRANSDERM. (21:46)
[2020-01-09 02:54] VITALS: PULSE 80
[2020-01-09 03:40] VITALS: BP 141/91; PULSE 80; RESP 17; TEMP 36.7; O2SAT 96
[2020-01-09 05:40] VITALS: BP 128/91; PULSE 81; RESP 16; TEMP 36.7; O2SAT 98
[2020-01-09 05:46] VITALS: BP 128/91
[2020-01-09] MEDS: Nitroglycerin Oint 1 INCH PACKET 0.5 INCH TRANSDERM. (05:46)
[2020-01-09 07:35] VITALS: PULSE 83
[2020-01-09] MEDS: Carvedilol 3.125 MG TABLET PO (10:39)
[2020-01-09] MEDS: Losartan Potassium 50 MG Tablet PO (10:40)
[2020-01-09] MEDS: amLODIPine 5 MG Tablet PO (10:40)
[2020-01-09] MEDS: hydroCHLOROthiazide 12.5mg 12.5 MG PO (10:40)
[2020-01-09 11:40] VITALS: BP 135/90; PULSE 81; RESP 16; TEMP 36.6; O2SAT 99
--- NOTE | 2020-01-09 12:27 | DCINST_ITS ---
- Discharge Diagnoses Current Active Problems: Current Active and Chronic Problems (Last Updated 01/08/20 @ 16:39 by Josie Watson) Anomalous right coronary artery (Chronic) Left ventricular dysfunction (Acute 01/08/20) EF 35% with global hypokinesis per [facility] done 01/08/2020 @ [facility] per [facility] NSTEMI (non-ST elevated myocardial infarction) (Acute 01/08/20) History of left heart catheterization (Chronic 01/08/20) Normal coronary arteries; Global LV systolic dysfunction- Moderate; LVEF: by LV gram 35 %; Depressed Left Ventricular systolic function - Moderate; Elevated Left Ventricular End Diastolic Pressure. Recommend CTA of aorta to determine if anomalous RCA goes b/w aorta and pulmonary artery. 01/08/2020 per [facility] @[facility] HTN (hypertension) (Chronic) Reason(s) for Visit for Discharge Instructions: Chest pain You will use the following diet at home:: Cardiac Your food should be the consistency of: Regular Your liquids should be the consistency of: Regular/Thin Discharge Activity: Return to Normal Activity Instructions: Controlling High Blood Pressure, Eating a Low-Salt Diet, High Blood Pressure (Hypertension), Tips for Quitting Smoking (Cardiovascular), Planning to Quit Smoking, Getting Support for Quitting Smoking, Coping with Smoking Withdrawal, Signs of Marijuana Addiction, Staying Smoke-Free, Understanding Marijuana Abuse Additional Instructions: Take all your medications as prescribed. Establish with a primary care doctor and follow-up within 2 weeks. You are strongly advised to quit smoking, drinking alcohol. Follow-up with Dr. Newby as scheduled. Allergies/Adverse Reactions: Allergies No Known Allergies Allergy (Verified 01/07/20 14:51) Medications to take at Discharge Amlodipine [Norvasc] 5 mg PO DAILY 30 Days #30 tab 01/09/20 Carvedilol [Coreg (Beta Jovanni)] 3.125 mg PO BID 30 Days #60 tab 01/09/20 Losartan Potassium [Cozaar] 50 mg PO DAILY 30 Days #30 tab 01/09/20 Nicotine Polacrilex [Nicotine Gum] 2 mg BC Q2H PRN PRN 30 Days #100 gum 01/09/20 Nicotine [Nicotine Patch] 1 ea TD DAILY 30 Days #30 patch.[email or web address] 01/09/20 hydroCHLOROthiazide [Hydrochlorothiazide] 12.5 mg PO DAILY 30 Days #30 cap 01/09/20 The following prescriptions were given: Carvedilol [Coreg (Beta Jovanni)] 3.125 mg PO BID 30 Days #60 tab Transmission Status: Pending to [facility] [place] Losartan Potassium [Cozaar] 50 mg PO DAILY 30 Days #30 tab Transmission Status: Pending to [facility] [place] hydroCHLOROthiazide [Hydrochlorothiazide] 12.5 mg PO DAILY 30 Days #30 cap Transmission Status: Pending to [facility] [place] Nicotine Polacrilex [Nicotine Gum] 2 mg BC Q2H PRN PRN 30 Days #100 gum PRN Reason: Nicotine Craving Transmission Status: Pending to [facility] [place] Nicotine [Nicotine Patch] 1 ea TD DAILY 30 Days #30 [email or web address] Transmission Status: Pending to [facility] [place] Amlodipine [Norvasc] 5 mg PO DAILY 30 Days #30 tab Transmission Status: Pending to [facility] [place] Primary Care Physician: Care Physician,No Primary [Primary Care Provider] - Please follow up with your Primary Care Physician in: within 1-2 weeks Test Results: Test results from this visit will be discussed in further detail at your follow- up appointment, if applicable. Please Follow Up With: William Newby MD When: within 1 month Proposed Discharge Date: 01/09/20
--- NOTE | 2020-01-09 12:31 | PCA ---
List of area PCPs given to patient with discharge paperwork.
--- NOTE | 2020-01-09 12:33 | DS.PCM_ITS ---
Discharge Date and Diagnosis Date of Admission: 01/07/20 Date of Discharge: 01/09/20 - Primary Discharge Diagnosis Active and Suspected Problems (Last Updated 01/08/20 @ 16:39 by Josie Watson) Chest pain Uncontrolled hypertension Cardiomyopathy, nonischemic Nicotine dependence Alcohol abuse - Secondary Discharge Diagnosis Chronic Problems (Last Updated 01/08/20 @ 16:39 by Josie Watson) Anomalous right coronary artery (Chronic) History of left heart catheterization (Chronic 01/08/20) Normal coronary arteries; Global LV systolic dysfunction- Moderate; LVEF: by LV gram 35 %; Depressed Left Ventricular systolic function - Moderate; [place] anthony Left Ventricular End Diastolic Pressure. Recommend CTA of aorta to determine if anomalous RCA goes b/w aorta and pulmonary artery. 01/08/2020 per DJN @[facility] HTN (hypertension) (Chronic) Hospital Course and Treatment Imaging Results: Clinical Impression(s) from Imaging Studies Chest X-Ray 01/07/20 15:20 IMPRESSION: Mild cardiomegaly. Electronically Signed: Gabo Alonso, at 15:42 EST , Service support , Cardiology Operations: None Procedures: 2-D Echocardiogram, Cardiac catheterization Summary of Care Provided: The patient is a 44 year old M with no significant past medical history except for hypertension but not on medications, comes in with complaints of chest pressure that began on the morning of the admission and was described as intermittent. He described the chest discomfort as a tightness and feels like his heart was being squeezed. Patient is a chronic smoker and has a positive family history of SD in his father. His initial EKG was unremarkable. His vitals were stable. He was admitted to the floor and his troponins were trended. Troponins were mildly elevated at 0.037, 0.042 and 0.50. Patient underwent a nuclear stress test which was negative but was positive for ventricular dilatation as well as an EF of 30%. 2D echo showed an EF of 25 to 30%, stage I diastolic dysfunction, severe global hypokinesis of the left ventricle. Cardiology was consulted and patient underwent cardiac catheterization. Findings in cardiac cath showed normal coronary arteries, EF of 35%, anomalous RCA that goes between the aorta and pulmonary artery. CT of the aorta is planned for 1 month. Patient was strongly counseled to stop smoking, stop drinking. He will undergo cardiac rehab. Repeat echo planned for 3 months. In the course of his hospital stay, his blood pres sure was uncontrolled and changes were made to his blood pressure medications. He was counseled to take all his medications and follow a low-salt low-fat diet. Subjective: On the day of discharge, patient was seen and examined. He felt improved. Denied any chest pain or dizziness. He was counseled strongly to stop smoking, drinking alcohol or using illicit drugs. - Physical Exam Vitals/I&O's: Vital Signs Temp Pulse Resp BP Pulse Ox 98.1 F 83 16 128/91 H 98 01/09/20 05:40 01/09/20 07:35 01/09/20 05:40 01/09/20 05:46 01/09/20 05:40 Oxygen Flow Rate (L/min) 2 Oxygen Delivery Method Room Air Weight: 104.326 kg Body Mass Index (BMI) 37.1 Intake and Output for Last 24 Hours 01/07/20 01/08/20 01/09/20 23:59 23:59 23:59 Intake Total 730 / 730 490 / 490 100 / 100 Output Total 300 / 300 Balance 730 / 730 190 / 190 100 / 100 General: Alert, Oriented x3, Cooperative, No apparent distress HEENT: Atraumatic, PERRLA, EOMI, Normocephalic Oral: Moist Mucosa Neck: Supple Lungs: Clear to auscultation, Normal air movement Cardiovascular: Regular rate, Regular Rhythm, Normal S1, Normal S2, No murmurs Abdomen: Bowel Sounds Present, Soft, Non Tender, Non-Distended Extremities: No edema Skin: No rashes, No breakdown Musculoskeletal: No Tenderness to Palpation of Joints or Extremities Lymphatic: No Cervical, Supraclavicular, or Inguinal Adenopathy Neurological: Cranial nerves II-XII grossly intact, Neuro grossly intact Psych/Mental Status: Normal Affect, Appropriate Current Medications Acetaminophen (Tylenol) 650 mg PO Q6H PRN PRN PRN Reason: Pain Score 1-10/Temp > 100.7 F Amlodipine Besylate (Norvasc) 5 mg PO DAILY [facility] Last Admin: 01/09/20 10:40 Dose: 5 mg Documented by: Carvedilol (Coreg) 3.125 mg PO BID [facility] Last Admin: 01/09/20 10:39 Dose: 3.125 mg Documented by: Heparin Sodium (Beef Lung) (Heparin 500 Unit/5 Ml (100/Ml)) 500 unit IV UD PRN PRN Reason: HEPARIN FLUSH Hydrochlorothiazide () 12.5 mg PO DAILY [facility] Last Admin: 01/09/20 10:40 Dose: 12.5 mg Documented by: Labetalol HCl (Trandate) 5 mg IV X1 PRN PRN Reason: SBP > 160 prior to sheath pull Losartan Potassium (Cozaar) 50 mg PO DAILY [facility] Last Admin: 01/09/20 10:40 Dose: 50 mg Documented by: Nitroglycerin (Nitrostat) 0.4 mg SUBLINGUAL Q5M PRN PRN Reason: CARDIAC/CHEST PAIN Nitroglycerin (Nitrobid) 0.5 inch TRANSDERM. Q8 [facility] Last Admin: 01/09/20 05:46 Dose: 0.5 inch Documented by: Sodium Chloride () 10 - 40 ml IV UD PRN PRN Reason: SALINE FLUSH Last Admin: 01/08/20 06:16 Dose: 10 ml Documented by: Discharge Diet: Low fat/ Low Cholesterol, 2000 mg Sodium Diet Discharge Activity: Return to Normal Activity Home Medications: Medications to take at Discharge Amlodipine [Norvasc] 5 mg PO DAILY 30 Days #30 tab 01/09/20 Carvedilol [Coreg (Beta Jovanni)] 3.125 mg PO BID 30 Days #60 tab 01/09/20 Losartan Potassium [Cozaar] 50 mg PO DAILY 30 Days #30 tab 01/09/20 Nicotine Polacrilex [Nicotine Gum] 2 mg BC Q2H PRN PRN 30 Days #100 gum 01/09/20 Nicotine [Nicotine Patch] 1 ea TD DAILY 30 Days #30 patch.[id number] 01/09/20 hydroCHLOROthiazide [Hydrochlorothiazide] 12.5 mg PO DAILY 30 Days #30 cap 01/09/20 Following Prescrptions Were Given to Patient: Carvedilol [Coreg (Beta Jovanni)] 3.125 mg PO BID 30 Days #60 tab Transmission Status: Received by [facility] [place] Losartan Potassium [Cozaar] 50 mg PO DAILY 30 Days #30 tab Transmission Status: Received by [facility] [place] hydroCHLOROthiazide [Hydrochlorothiazide] 12.5 mg PO DAILY 30 Days #30 cap Transmission Status: Received by [facility] [place] Nicotine Polacrilex [Nicotine Gum] 2 mg BC Q2H PRN PRN 30 Days #100 gum PRN Reason: Nicotine Craving Transmission Status: Received by [facility] [place] Nicotine [Nicotine Patch] 1 ea TD DAILY 30 Days #30 patch.[email or web address] Transmission Status: Received by [facility] [place] Amlodipine [Norvasc] 5 mg PO DAILY 30 Days #30 tab Transmission Status: Received by [facility] [place] Primary Care Physician: Care Physician,No Primary [Primary Care Provider] - Please follow up with your Primary Care Physician in: within 1-2 weeks Please Follow Up With: William Newby MD When: within 1 month Patient Instructions: Controlling High Blood Pressure, Tips for Quitting Smoking (Cardiovascular), Signs of Marijuana Addiction, Planning to Quit Smoking, Getting Support for Quitting Smoking, Coping with Smoking Withdrawal, Staying Smoke-Free, Understanding Marijuana Abuse, High Blood Pressure (Hypertension), Eating a Low-Salt Diet Disposition: Home Minutes spent on discharge:: 40 Patient Condition:: Stable Medical Necessity - Tobacco Use Smoking Status: Current every day smoker Tobacco Use: Cigarettes Meaningful Use Info Meaningful Use Diagnoses (Choose all that apply): None applicable Code Visit OBSV E&M: 24378 Observation care discharge
--- NOTE | 2020-01-09 13:21 | CASEMGMT ---
Per Dr. Rizzo, pt needs a list of local PCP's. This PIPO MANCINI provided pt with a list of local PCP's at this time. Pt voices no further questions/concerns/needs at this time. Pt does request a work release for discharge and Gagan desai at this time, voices understanding. Jean-Paul FOSS CM
== END 2020-01-09 12:27 | disposition home or self-care (01) ==
LOC: ED 15:25 → PCU 16:25
PROVIDERS: Hospitalist; Admitting Provider Family Medicine; Emergency Provider Emergency Medicine; Visit Provider Internal Medicine
DX: R07.89 Other chest pain (principal); I10 Essential (primary) hypertension; I42.8 Other cardiomyopathies; M25.512 Pain in left shoulder; R06.02 Shortness of breath; R11.0 Nausea; F17.210 Nicotine dependence, cigarettes, uncomplicated; R94.39 Abnormal result of other cardiovascular function study; Q24.5 Malformation of coronary vessels; Z82.49 Family history of ischemic heart disease and other diseases of the circulatory system; F10.10 Alcohol abuse, uncomplicated
CPT/HCPCS: 36415; 71045; 78452; 80048; 80061; 84484; 85025; 85379; 93005; 93017; 93306; 93458; 96360; 96361; 99218; 99285; 99406; A9500; J7030; J7040; Q9957; Q9967; A4216; C1769; C1894; C8929; G0378; J2785

== ENCOUNTER → 2020-01-30 12:41 | Outpatient (CLI) | payer OTHER, SELFPAY ==
[2020-01-07 16:46] VITALS: BMI 37.1
[2020-01-30] VITALS (7 sets, daily range): BP systolic 130–144; BP diastolic 64–113; PULSE 71–78; RESP 14–16; O2SAT 96–98; BMI 37.1
[2020-01-30] MEDS: Metoprolol Tartrate 5 MG/5 ML Vial IV ×3 (13:14→13:27)
--- NOTE | 2020-01-30 13:33 | CT_ITS ---
STUDY: CARDIAC CALCIUM SCORING - CT CHEST REASON FOR EXAM: Male, 44 years old. ANOMOLOUS RCA -- CHEST OVER READ ON CALCIUM SCORE ONLY RADIATION DOSAGE (If Supplied By Facility): CTDIvol = ( 19 ) mGy, DLP = ( 1037 ) mGycm TECHNIQUE: Axial non-enhanced images were acquired through the heart for the sole purpose of measuring coronary artery calcium. Individualized dose optimization techniques were used for this CT. COMPARISON: None. FINDINGS: Please see the patient''s medical record for a personalized calcium score. The visualized lungs are clear. The visualized soft tissues are within normal limits. CT/Limited Chest CT w/CCTA IMPRESSION: Please see the patient''s medical record for a personalized calcium score. Please go to: [email or web address] , for a description of the calculator. Electronically Signed: Herberth Morales, at 15:47 EDT Tel , Service support ,
[2020-01-30] MEDS: Nitroglycerin SL (ED/IMG/CATH) 0.4 MG TABLET SUBLINGUAL (13:57)
--- NOTE | 2020-01-31 10:48 | CA.SCORE ---
Calcium Scoring Date of Study:: 01/30/20 Coronary Calcium Scoring: High-resolution Computed Tomographic imaging of the chest was performed on [01/30/2020], with particular attention paid to the coronary arteries. Images from the examination were analyzed for the presence and extent of coronary artery calcification , using coronary calcium quantification software. The patient tolerated the procedure well and there were no complications. The results of the coronary calcification analysis are provided below. - Findings Left Main (LM): 0 Left Anterior Descending (LAD): 0 Left Circumflex (LCX): 0 Right Coronary Artery (RCA): 0 Total Agatston Score: 0 Percentile Rankin% Calcium Scoring Interpretation: 0 No identifiable atherosclerotic plaque. Very low cardiovascular disease risk. <5% chance of presence coronary artery disease A Negative Examination 1-10 Minimal Plaque burden. Significant coronary artery disease very unlikely. 11-100 Mild plaque burden. Likely mild or minimal coronary atherosclerosis. 101-400 Moderate plaque burden Moderate non-obstructive coronary artery disease highly likely. Over 400 Extensive plaque burden. High likelihood of at least one significant coronary stenosis (>50% diameter) Conclusion: The total calcium score (0) is below the 25th percentile for men between the ages of 40 and 44. (Exact percentile calculated to be 25%; this means 24% of the population has a similar calcium score and 75% of the population is a higher calcium score than this patient.) A full evaluation of cardiac risk including assessment of all conventional risk factors, and the scores and percentile rankings reported herein should be evaluated in this context.
--- NOTE | 2020-03-03 09:01 | CCTA_ITS ---
CCTA w/Cont Coronary Arteries Date of Study:: 01/30/20 Evaluate coronary pathways Consent:: Obtained Patient went coronary artery CT angiogram to evaluate coronary pathways with respect to pulmonary artery. There/benefits of the procedure were thoroughly explained the patient and informed consent was obtained. Patient went IV contrast dye injection during CT angiography. Patient was treated with beta-maura therapy to obtain adequate heart rate, and synchronized with his EKG. Evaluation of images appear to be ad equate infusion both the left and right sides. There was however some motion artifact with evaluation of the proximal mid and distal LAD. LEFT MAIN CORONARY ARTERY: [Within normal limits] LEFT ANTERIOR DESCENDING CORONARY ARTERY: [Bifurcates in the left main and runs down the anterior portion of the heart. There was adequate filling, and no evidence of significant calcification or obstruction. There was however some mild motion artifact in the proximal mid and distal LAD images which did not appear to impact on its evaluation.] LEFT CIRCUMFLEX CORONARY ARTERY: [Bifurcates off of the left main, and appears to be nondominant. No calcification noted. No evidence of any significant coronary occlusive disease.] RIGHT CORONARY ARTERY: [This appears to come off the anterior portion of the aorta, possibly off of the left coronary sinus, and traverses in its normal course. It does not appear to course between the aorta and pulmonary artery. Again there was some mild motion artifact which did not appear to impact on the evaluation of the vessel. No significant calcification or obstructive disease noted.] THORACIC AORTA: [Within normal limits.] PULMONARY ARTERY: [Normal size.] LEFT ATRIUM/APPENDAGE: [] MITRAL VALVE: [] AORTIC VALVE: [Bileaflet.] LEFT VENTRICLE: [LV appears to be normal size and good opacification. Unable to evaluate LV function.] CORONARY CALCIUM SCORE: [0] Conclusions: 1. Normal coronary artery opacification, no evidence of significant obstructive disease. No evidence of any calcification. 2. It appears the right coronary artery comes off of the left coronary cusp but does not appear to traverse between the aorta and pulmonary artery. 3. Slight motion artifact during imaging of the LAD and right coronary artery which does not appreciably affect coronary artery results. 4. Patient tolerate procedure well. No complications.
== END ==
LOC: CT 12:42
PROVIDERS: Referring Provider Internal Medicine Cardiovascular Disease; Visit Provider Internal Medicine Cardiovascular Disease
DX: I51.9 Heart disease, unspecified (principal); Q24.5 Malformation of coronary vessels; I25.2 Old myocardial infarction; Z98.890 Other specified postprocedural states
CPT/HCPCS: 75571; 75574; 76380; 96374; Q9967; A4216

== ENCOUNTER → 2020-02-20 | Outpatient (CLI) | payer SELFPAY ==
[2020-02-20 16:21] VITALS: BMI 37.1
[2020-02-20 18:09] LABS: Anion Gap 7 (5-15); BUN 19 mg/dL (7-18); Calcium,Total 8.7 mg/dL (8.5-10.1); Chloride 109 mmol/L (98-107); Creatinine, Serum 1.19 mg/dL (0.70-1.30); EST Glomerular Filtration Rate 71 mL/min (>60); Est Glom Filt Rate - Afr Amer 86 mL/min (>60); Glucose 92 mg/dL (74-106); Potassium 3.5 mmol/L (3.5-5.1); Sodium Level 143 mmol/L (136-145)
== END | disposition home or self-care (01) ==
LOC: LABSPEC 17:25
PROVIDERS: PCP Internal Medicine; Visit Provider Internal Medicine
DX: I10 Essential (primary) hypertension (principal); I25.2 Old myocardial infarction
CPT/HCPCS: 80048